=== PATIENT | male | born 1945 | race Caucasian/White ===

== ENCOUNTER 2017-01-24 08:34 | Emergency (ER) | payer MEDICARE, MEDICAID ==
[2017-01-24 08:55] VITALS: BP 95/70
[2017-01-24] MEDS ORDERED: Bacitracin Oint 1 GM U/D Packet TOP ONE (09:17)
--- NOTE | 2017-01-24 09:23 | EDM.PDOC ---
ED HPI GENERAL MEDICAL PROBLEM - General Chief Complaint: Skin Complaint Stated Complaint: INJURY ON LT LOWER LEG Time Seen by Provider: 01/24/17 09:10 Source of Information: Reports: Patient History Limitations: Reports: No Limitations - History of Present Illness INITIAL COMMENTS - FREE TEXT/NARRATIVE: 71-year-old male [place] and sustained a superficial abrasion and laceration to the lateral aspect of his left lower leg. He is leaving for the winter in 2 days and feels like it may be getting infected and wanted it covered for the trip. No fevers or chills. Onset: Other (Injury occurred 5 days ago) Location: Reports: Lower Extremity, Left Severity: Mild Associated Symptoms: Denies: Fever/Chills - Related Data Allergies Allergy/AdvReac Type Severity Reaction Status Date / Time Penicillins Allergy Anaphylactic Verified 01/24/17 08:59 Shock Home Meds: Home Meds Fenofibrate [Fenoglide] 120 mg PO DAILY 11/28/13 [History] Lisinopril [Lisinopril] 5 mg PO DAILY 11/28/13 [History] Simvastatin [Simvastatin] 80 mg PO DAILY 11/28/13 [History] ALPRAZolam [Alprazolam] 0.5 mg PO TID PRN 01/24/17 [History] Aspirin [Adult Low Dose Aspirin EC] 81 mg PO DAILY 01/24/17 [History] Cyclobenzaprine [Flexeril] 10 mg PO ASDIRECTED PRN 01/24/17 [History] Past Medical History HEENT History: Reports: Impaired Vision Cardiovascular History: Reports: High Cholesterol, Hypertension Neurological History: Reports: Other (See Below) Other Neuro History: tremors Oncologic (Cancer) History: Reports: Other (See Below) Other Oncologic History: 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 - Past Surgical History Cardiovascular Surgical History: Reports: Cardiac Ablation Social & Family History - Tobacco Use Smoking Status *Q: Current Every Day Smoker Years of Tobacco use: 55 Packs/Tins Daily: 1.5 - Alcohol Use Days Per Week of Alcohol Use: 2 Number of Drinks Per Day: 2 Total Drinks Per Week: 4 - Recreational Drug Use Recreational Drug Use: Yes Recreational Drug Type: Reports: Marijuana/Hashish Recreational Drug Use Frequency: Monthly ED ROS GENERAL - Review of Systems Review Of Systems: See Below Constitutional: Denies: Fever, Chills, Malaise Respiratory: Denies: Shortness of Breath Cardiovascular: Denies: Chest Pain GI/Abdominal: Denies: Nausea, Vomiting Neurological: Reports: No Symptoms ED EXAM, SKIN/RASH Exam: See Below Exam Limited By: No Limitations General Appearance: Alert, No Apparent Distress Respiratory/Chest: No Respiratory Distress, Lungs Clear Extremities: Other (Exam is otherwise limited to the lower extremities. The patient has a superficial abrasion on the lateral aspect of the left lower leg with some serous weeping and surrounding erythema) Course - Vital Signs Last Recorded V/S: Last Vital Signs Temp 96.3 F 01/24/17 09:06 Pulse 89 01/24/17 09:06 Resp 16 01/24/17 09:06 BP 95/70 01/24/17 09:06 Pulse Ox 94 L 01/24/17 09:06 - Orders/Labs/Meds Meds: Medications Discontinued Medications Generic Name Dose Route Start Last Admin Trade Name Freq PRN Reason Stop Dose Admin Bacitracin 1 dose 01/24/17 09:17 01/24/17 09:30 Bacitracin Oint 1 Gm TOP 01/24/17 09:18 1 dose ONETIME ONE Administration - Re-Assessments/Exams Free Text/Narrative Re-Assessment/Exam: 01/24/17 09:20 Topical bacitracin was placed over the wound with a nonstick dressing and an Migel wrap. He was started on clindamycin and can have his wound rechecked when he gets to [place] later this week. Departure - Departure Time of Disposition: 09:37 Disposition: Home, Self-Care 01 Condition: Good Clinical Impression: Abrasion, leg with infection Qualifiers: Encounter type: initial encounter Laterality: left Qualified Code(s): S80.812A - Abrasion, left lower leg, initial encounter - Discharge Information Instructions: Cellulitis, Adult Referrals: Bruno Casas MD [Primary Care Provider] - Forms: ED Department Discharge Care Plan Goals: Take antibiotic as prescribed and keep wound clean and moist while healing. Recheck later this week if not improving satisfactorily.
== END 2017-01-24 09:37 | disposition home or self-care (01) ==
LOC: JP.ED 08:34
DX: S80.812A Abrasion, left lower leg, initial encounter (principal); L08.9 Local infection of the skin and subcutaneous tissue, unspecified; I10 Essential (primary) hypertension; E78.00 Pure hypercholesterolemia, unspecified; F17.210 Nicotine dependence, cigarettes, uncomplicated; Z88.0 Allergy status to penicillin; Z79.82 Long term (current) use of aspirin; Z85.828 Personal history of other malignant neoplasm of skin; Z79.899 Other long term (current) drug therapy; W18.40XA Slipping, tripping and stumbling without falling, unspecified, initial encounter
CPT/HCPCS: 99283

== ENCOUNTER 2021-08-31 20:13 | Observation (INO) | payer MEDICARE, MEDICAID ==
[2021-08-31] MEDS ORDERED: HYDROmorphone 0.5 MG/0.5 ML Syringe IVPUSH PRN ×2 (20:16→23:43)
[2021-08-31] MEDS ORDERED: Sodium Chloride 0.9% 10 ML Syringe FLUSH PRN ×2 (20:16→23:37)
[2021-08-31 22:07] LABS: CORONAVIRUS COVID-19 NAA NEGATIVE (NEGATIVE)
[2021-08-31] MEDS ORDERED: ALPRAZolam 0.5 MG Tab PO PRN (23:54)
[2021-08-31] MEDS ORDERED: Non-Formulary Medication 1 Each (Cyclobenzaprine [Flexeril] 10 MG Tablet) PO PRN (23:54)
[2021-09-01] MEDS: Acetaminophen/oxyCODONE 325-5 MG Tab PO PRN ×2 (00:40→08:50)
[2021-09-01] MEDS: Fenofibrate,Micronized 67 MG Cap PO SCH (08:39)
[2021-09-01] MEDS: atorvaSTATin 20 MG Tab PO SCH (08:40)
[2021-09-01] MEDS: Enoxaparin 40 MG/0.4 ML Syringe SUBCUT SCH (08:42)
[2021-09-01] MEDS: Lisinopril 5 MG Tab PO SCH (08:43)
[2021-09-01] MEDS ORDERED: Enoxaparin 30 MG/0.3 ML Syringe SUBCUT SCH (09:00)
[2021-09-01] MEDS ORDERED: FENOFIBRATE 120 MG PO SCH (09:00)
[2021-09-01] MEDS ORDERED: Acetaminophen 325 MG Tab PO PRN (12:35)
[2021-09-01] MEDS: Ketorolac 30 MG/ML SDV IVPUSH PRN ×2 (13:33→20:34)
[2021-09-01] MEDS: oxyCODONE 5 MG Tab PO PRN (16:57)
[2021-09-02] MEDS: Cyclobenzaprine 10 MG Tab PO PRN ×3 (03:33→17:19)
[2021-09-02] MEDS: oxyCODONE 5 MG Tab PO PRN ×3 (07:52→21:54)
[2021-09-02] MEDS: Magnesium Hydroxide 400 MG/5 ML Susp 30 ML Cup PO PRN ×2 (08:01→17:20)
[2021-09-02] MEDS: Enoxaparin 40 MG/0.4 ML Syringe SUBCUT SCH (09:43)
[2021-09-02] MEDS: atorvaSTATin 20 MG Tab PO SCH (09:44)
[2021-09-02] MEDS: Lisinopril 5 MG Tab PO SCH (09:44)
[2021-09-02] MEDS: Fenofibrate,Micronized 67 MG Cap PO SCH (09:44)
[2021-09-03] MEDS: oxyCODONE 5 MG Tab PO PRN (08:13)
[2021-09-03] MEDS: Cyclobenzaprine 10 MG Tab PO PRN (08:14)
[2021-09-03] MEDS: atorvaSTATin 20 MG Tab PO SCH (08:15)
[2021-09-03] MEDS: Lisinopril 5 MG Tab PO SCH (08:16)
[2021-09-03] MEDS: Fenofibrate,Micronized 67 MG Cap PO SCH (08:16)
[2021-09-03] MEDS: Enoxaparin 40 MG/0.4 ML Syringe SUBCUT SCH (08:17)
[2021-09-03 11:11] VITALS: BP 119/44; PULSE 74
== END 2021-09-03 13:20 | disposition home health service (06) ==
LOC: JP.ED 20:13 → JP.ICU 23:55
PROVIDERS: ADMIT Family Medicine; ATTEND Internal Medicine
DX: M25.552 Pain in left hip (principal); M54.16 Radiculopathy, lumbar region; R74.01 Elevation of levels of liver transaminase levels; H54.7 Unspecified visual loss; E78.00 Pure hypercholesterolemia, unspecified; F17.210 Nicotine dependence, cigarettes, uncomplicated; I65.29 Occlusion and stenosis of unspecified carotid artery; I73.9 Peripheral vascular disease, unspecified; J44.9 Chronic obstructive pulmonary disease, unspecified; I10 Essential (primary) hypertension; Z20.822 Contact with and (suspected) exposure to COVID-19; Z88.0 Allergy status to penicillin; Z79.899 Other long term (current) drug therapy; Z95.820 Peripheral vascular angioplasty status with implants and grafts; Z98.890 Other specified postprocedural states; W19.XXXA Unspecified fall, initial encounter
CPT/HCPCS: 0241U; 36415; 71250; 73502-26-LT; 73502-LT; 74176; 80053; 80307; 85025; 85610; 85730; 86140; 96372; 96374; 96375; 96376; 97110-GP; 97161-GP; 97530-GP; 99284; 99285-25; A9270-GY; G0378; J1170; J1650; J1885; J3490; J7509

== ENCOUNTER 2022-08-01 03:37 | Emergency (ER) | payer MEDICARE, MEDICAID ==
[2022-08-01 05:09] VITALS: BP 96/68; PULSE 103
[2022-08-01 05:38] LABS: CORONAVIRUS COVID-19 NAA NEGATIVE (NEGATIVE)
[2022-08-01 05:39] LABS: ESTIMATED GFR 87 mL/min (>60)
== END 2022-08-01 06:05 | disposition home or self-care (01) ==
LOC: JP.ED 03:37
DX: E86.0 Dehydration (principal); J42 Unspecified chronic bronchitis; J20.9 Acute bronchitis, unspecified; I48.91 Unspecified atrial fibrillation; I44.7 Left bundle-branch block, unspecified; E78.00 Pure hypercholesterolemia, unspecified; I10 Essential (primary) hypertension; Z72.0 Tobacco use; Z88.0 Allergy status to penicillin; Z79.899 Other long term (current) drug therapy; Z20.822 Contact with and (suspected) exposure to COVID-19
CPT/HCPCS: 0241U; 36415; 80053; 85025; 87081; 87880; 93005; 99283

== ENCOUNTER 2022-12-17 11:06 | Inpatient (IN) | payer MEDICARE, MEDICAID ==
[2022-12-17] MEDS ORDERED: HYDROmorphone 0.5 MG/0.5 ML Syringe IVPUSH ONE (12:00)
[2022-12-17] MEDS ORDERED: Sodium Chloride 0.9% 1,000 ML IV SCH (12:00)
[2022-12-17] MEDS ORDERED: Ondansetron 4 MG/2 ML SDV IVPUSH ONE (12:00)
[2022-12-17 12:21] LABS: HEMATOCRIT 40.5 % (38.4-49.7); HEMOGLOBIN 13.6 g/dL (12.9-16.9); MEAN CORPUSCULAR HEMOGLOBIN 31.1 pg (31.6-35.5); MEAN CORPUSCULAR HGB CONC 33.6 g/dL (31.6-35.5); MEAN CORPUSCULAR VOLUME 92.7 fL (81.4-99.0); RED BLOOD CELL COUNT 4.37 M/uL (4.14-5.76); WHITE BLOOD CELL COUNT,WBC 7.3 K/uL (3.2-11.0)
[2022-12-17 12:38] LABS: INR 1.1; PROTHROMBIN TIME 11.2 sec (9.2-10.6)
[2022-12-17 12:42] LABS: A/G RATIO 0.9 (1.2-2.2); ALANINE AMINOTRANSFERASE,ALT 35 U/L (12-78); ALBUMIN 3.2 g/dL (3.4-5.0); ALKALINE PHOSPHATASE 118 U/L (46-116); ASPARTATE AMNIOTRANSFERASE,AST 32 U/L (15-37); BILIRUBIN TOTAL 0.6 mg/dL (0.2-1.0); BLOOD UREA NITROGEN,BUN 13 mg/dL (7-18); CALCIUM 9.2 mg/dL (8.5-10.1); CARBON DIOXIDE,CO2 29 mmol/L (21-32); CHLORIDE,CL 104 mmol/L (100-108); CREATININE 0.9 mg/dL (0.8-1.3); EST CRCL DRUG DOSING (CG) 66.55 mL/min; ESTIMATED GFR 87 mL/min (>60); GLUCOSE RANDOM 160 mg/dL (74-106); POTASSIUM,K 3.9 mmol/L (3.6-5.2); PROTEIN TOTAL,TP 6.9 g/dL (6.4-8.2); SODIUM,NA 140 mmol/L (140-148)
[2022-12-17 14:19] LABS: APPEARANCE,URINE CLEAR (CLEAR); BILIRUBIN,URINE NEGATIVE (NEGATIVE); COLOR,URINE YELLOW (YELLOW); GLUCOSE,URINE 100 mg/dL (NEGATIVE); KETONES,URINE NEGATIVE (NEGATIVE); LEUKOCYTE ESTERASE,URINE NEGATIVE (NEGATIVE); NITRITE,URINE NEGATIVE (NEGATIVE); OCCULT BLOOD,URINE NEGATIVE (NEGATIVE); PROTEIN,URINE NEGATIVE (NEGATIVE)
[2022-12-17 14:26] LABS: AMORPHOUS SEDIMENT,URINE NOT SEEN; BACTERIA,URINE RARE; EPITHELIAL CELLS,URINE RARE; MUCUS,URINE FEW; RBC,URINE 0-5 (0-5); WBC,URINE 0-5 (0-5)
[2022-12-17] MEDS ORDERED: Iopamidol 612 MG/ML 500 ML Multipack Bottle IV ONE (14:37)
[2022-12-17] MEDS ORDERED: Sodium Chloride 0.9% 10 ML Syringe FLUSH ONE (14:37)
[2022-12-17] MEDS ORDERED: Sodium Chloride 0.9% 50 ML IV SCH (14:45)
[2022-12-17] MEDS ORDERED: Sodium Chloride 0.9% 1,000 ML IV STA (15:35)
[2022-12-17] MEDS ORDERED: Ertapenem 1 GM in Sodium Chloride 0.9% 100 ML IV ONE (16:50)
[2022-12-17] MEDS ORDERED: HYDROmorphone 1 MG/ML Syringe IVPUSH ONE (16:56)
[2022-12-17] MEDS ORDERED: Sodium Chloride 0.9% 10 ML Syringe FLUSH PRN (18:17)
[2022-12-17] MEDS ORDERED: Cyclobenzaprine 10 MG Tab PO PRN (18:17)
[2022-12-17] MEDS ORDERED: Acetaminophen 325 MG Tab PO PRN (18:17)
[2022-12-17] MEDS ORDERED: Ondansetron 4 MG/2 ML SDV IV PRN (18:17)
[2022-12-17] MEDS ORDERED: Naloxone 0.4 MG/ML SDV IVPUSH PRN (18:17)
[2022-12-17] MEDS ORDERED: Polyethylene Glycol 3350 Powder 17 GM Packet PO PRN (18:17)
[2022-12-17] MEDS ORDERED: ALPRAZolam 0.5 MG Tab PO PRN (18:35)
[2022-12-17] MEDS: Nicotine 21 MG/24 Hr Patch TRDERM SCH (19:08)
[2022-12-17] MEDS: Sodium Chloride 0.9% 1,000 ML IV SCH (19:09)
[2022-12-17] MEDS: atorvaSTATin 20 MG Tab PO SCH (21:12)
[2022-12-17] MEDS: Meropenem 1 GM in Sodium Chloride 0.9% 100 ML IV SCH (21:12)
[2022-12-18] MEDS: HYDROmorphone 0.5 MG/0.5 ML Syringe IVPUSH PRN ×2 (00:22→05:41)
[2022-12-18 04:42] LABS: BASOPHILS ABSOLUTE AUTO 0.06 K/uL (0.00-0.10); BASOPHILS PERCENT AUTO 0.9 % (0.1-1.3); EOSINOPHILS PERCENT AUTO 7.2 % (0.0-5.4); HEMOGLOBIN 12.4 g/dL (12.9-16.9); IMMATURE GRAN PERCENT AUTO 0.3 % (0.0-0.7); LYMPHOCYTES ABSOLUTE AUTO 1.52 K/uL (0.8-3.3); LYMPHOCYTES PERCENT AUTO 21.7 % (11.4-47.7); MEAN CORPUSCULAR HEMOGLOBIN 30.6 pg (31.6-35.5); MEAN CORPUSCULAR HGB CONC 32.6 g/dL (31.6-35.5); MEAN CORPUSCULAR VOLUME 93.8 fL (81.4-99.0); MONOCYTES ABSOLUTE AUTO 0.62 K/uL (0.20-0.90); MONOCYTES PERCENT AUTO 8.9 % (3.3-12.6); NEUTROPHILS ABSOLUTE AUTO 4.27 K/uL (1.0-7.6); PLATELET COUNT,PLT 158 K/uL (130-375); RED BLOOD CELL COUNT 4.05 M/uL (4.14-5.76)
[2022-12-18 04:43] LABS: IMMATURE GRAN ABSOLUTE AUTO 0.02 K/uL (0.00-0.23)
[2022-12-18 04:53] LABS: ANION GAP 5.7 mmol/L (5.0-14.0); CALCIUM 8.2 mg/dL (8.5-10.1); CREATININE 0.8 mg/dL (0.8-1.3); EST CRCL DRUG DOSING (CG) 74.87 mL/min; POTASSIUM,K 3.7 mmol/L (3.6-5.2)
[2022-12-18] MEDS: Sodium Chloride 0.9% 1,000 ML IV SCH (05:42)
[2022-12-18] MEDS: Meropenem 1 GM in Sodium Chloride 0.9% 100 ML IV SCH (05:43)
[2022-12-18] MEDS ORDERED: Bupivacaine 0.5%/EPINEPHrine 1:200,000 50 ML MDV ONE (06:39)
[2022-12-18] MEDS ORDERED: Lidocaine 1% 50 ML MDV ONE (06:39)
[2022-12-18] MEDS ORDERED: Rocuronium 50 MG/5 ML Vial ONE (07:24)
[2022-12-18] MEDS ORDERED: Dexamethasone 4 MG/ML SDV ONE (07:24)
[2022-12-18] MEDS ORDERED: Propofol 200 MG/20 ML SDV ONE (07:24)
[2022-12-18] MEDS ORDERED: Ondansetron 4 MG/2 ML SDV ONE (07:24)
[2022-12-18] MEDS ORDERED: fentaNYL 250 MCG/5 ML SDV ONE (07:24)
[2022-12-18] MEDS ORDERED: Glycopyrrolate 0.2 MG/ML 5 ML MDV ONE (07:24)
[2022-12-18] MEDS ORDERED: Neostigmine Methylsulfate 1 MG/ML 5 ML Syringe ONE (07:24)
[2022-12-18] MEDS ORDERED: Succinylcholine 200 MG/10 ML MDV ONE (07:24)
[2022-12-18] MEDS ORDERED: Ketamine 20 MG in Sodium Chloride 0.9% 19.8 ML IV SCH (07:30)
[2022-12-18] MEDS ORDERED: Ropivacaine 40 ML, dexAMETHasone 8 MG, EPINEPHrine 0.4 MG, Sodium Chloride 0.9% 37.6 ML NERVRT SCH ×4 (07:30)
[2022-12-18] MEDS ORDERED: Ketamine 500 MG/5 ML MDV IV SCH (07:30)
[2022-12-18] MEDS ORDERED: Lactated Ringers 1,000 ML ONE (08:10)
[2022-12-18] MEDS ORDERED: Sugammadex Sodium 200 MG/2 ML VIAL ONE (08:55)
[2022-12-18] MEDS: Lisinopril 5 MG Tab PO SCH (09:59)
[2022-12-18] MEDS: Nicotine 21 MG/24 Hr Patch TRDERM SCH (10:06)
[2022-12-18] MEDS: Dextrose 5%-Lactated Ringers 1,000 ML IV SCH ×2 (12:50→21:37)
[2022-12-18] MEDS: Meropenem 500 MG in Sodium Chloride 0.9% 50 ML IV SCH ×3 (12:52→23:18)
[2022-12-18] MEDS: Acetaminophen 325 MG Tab PO SCH ×2 (13:06→20:10)
[2022-12-18] MEDS: oxyCODONE 5 MG Tab PO PRN (13:06)
[2022-12-18] MEDS: atorvaSTATin 20 MG Tab PO SCH (20:10)
[2022-12-19] MEDS: Acetaminophen 325 MG Tab PO SCH ×2 (02:40→08:41)
[2022-12-19 04:57] LABS: BASOPHILS PERCENT AUTO 0.1 % (0.1-1.3); EOSINOPHILS PERCENT AUTO 0.1 % (0.0-5.4); HEMATOCRIT 38.2 % (38.4-49.7); HEMOGLOBIN 12.7 g/dL (12.9-16.9); IMMATURE GRAN ABSOLUTE AUTO 0.04 K/uL (0.00-0.23); IMMATURE GRAN PERCENT AUTO 0.4 % (0.0-0.7); LYMPHOCYTES ABSOLUTE AUTO 1.11 K/uL (0.8-3.3); LYMPHOCYTES PERCENT AUTO 10.9 % (11.4-47.7); MEAN CORPUSCULAR HEMOGLOBIN 30.7 pg (31.6-35.5); MEAN CORPUSCULAR HGB CONC 33.2 g/dL (31.6-35.5); MEAN CORPUSCULAR VOLUME 92.3 fL (81.4-99.0); MONOCYTES ABSOLUTE AUTO 0.79 K/uL (0.20-0.90); MONOCYTES PERCENT AUTO 7.7 % (3.3-12.6); NEUTROPHILS ABSOLUTE AUTO 8.27 K/uL (1.0-7.6); NEUTROPHILS PERCENT AUTO 80.8 % (40.0-78.1); PLATELET COUNT,PLT 154 K/uL (130-375); RED BLOOD CELL COUNT 4.14 M/uL (4.14-5.76); WHITE BLOOD CELL COUNT,WBC 10.2 K/uL (3.2-11.0)
[2022-12-19] MEDS: Meropenem 500 MG in Sodium Chloride 0.9% 50 ML IV SCH ×2 (05:13→11:26)
[2022-12-19 05:15] LABS: BASOPHILS ABSOLUTE AUTO 0.01 K/uL (0.00-0.10); EOSINOPHILS ABSOLUTE AUTO 0.01 K/uL (0.00-0.40)
[2022-12-19 05:44] LABS: BILIRUBIN TOTAL 0.3 mg/dL (0.2-1.0)
[2022-12-19] MEDS: Lisinopril 5 MG Tab PO SCH (08:41)
[2022-12-19] MEDS: Nicotine 21 MG/24 Hr Patch TRDERM SCH (08:42)
[2022-12-19] MEDS: oxyCODONE 5 MG Tab PO PRN (08:45)
[2022-12-19 11:58] VITALS: BP 131/48; PULSE 85
== END 2022-12-19 15:08 | disposition home or self-care (01) | DRG 418 ==
LOC: JP.ED 11:06 → JP.MS 17:21
PROVIDERS: ADMIT Hospitalist; ATTEND Hospitalist
PROC: 0FT44ZZ Resection of Gallbladder, Percutaneous Endoscopic Approach (ICD-10-PCS; principal; 2022-12-18)
PROC: 0FB24ZX Excision of Left Lobe Liver, Percutaneous Endoscopic Approach, Diagnostic (ICD-10-PCS; 2022-12-18)
PROC: 0WQF4ZZ Repair Abdominal Wall, Percutaneous Endoscopic Approach (ICD-10-PCS; 2022-12-18)
DX: K81.0 Acute cholecystitis (principal); K42.0 Umbilical hernia with obstruction, without gangrene; K76.6 Portal hypertension; E86.0 Dehydration; J44.9 Chronic obstructive pulmonary disease, unspecified; I10 Essential (primary) hypertension; E78.00 Pure hypercholesterolemia, unspecified; F17.210 Nicotine dependence, cigarettes, uncomplicated; I73.9 Peripheral vascular disease, unspecified; K74.69 Other cirrhosis of liver; Z90.49 Acquired absence of other specified parts of digestive tract; Z88.0 Allergy status to penicillin; Z79.899 Other long term (current) drug therapy; Z87.81 Personal history of (healed) traumatic fracture; Z85.828 Personal history of other malignant neoplasm of skin; Z90.89 Acquired absence of other organs; Z95.820 Peripheral vascular angioplasty status with implants and grafts; R06.02 Shortness of breath
CPT/HCPCS: 36415; 74177 ×2; 76705 ×2; 80053; 80307; 81001; 83605; 83690; 83735; 84145; 85027; 85610; 96361; 96365; 96375; 96376; 99284; 99285; J1170 ×2; J1335; J2405; J3490 ×3; J7030 ×2; Q9967; 71046; 80048; 82247; 84075; 85025; 88304; 88307; 88313; 93005; 93010; 99222; 99232; A9270-GY; J0131; J0171; J0330; J1100; J2001; J2185; J2704; J2710; J2795; J3010; J7120; J7121; U0002

== ENCOUNTER 2023-01-16 16:47 | Emergency (ER) | payer MEDICAID, MEDICARE ==
[2023-01-16] MEDS ORDERED: Sodium Chloride 0.9% 1,000 ML IV SCH (17:00)
[2023-01-16 17:06] LABS: BASOPHILS ABSOLUTE AUTO 0.07 K/uL (0.00-0.10); BASOPHILS PERCENT AUTO 0.6 % (0.1-1.3); EOSINOPHILS ABSOLUTE AUTO 0.08 K/uL (0.00-0.40); EOSINOPHILS PERCENT AUTO 0.7 % (0.0-5.4); HEMATOCRIT 36.6 % (38.4-49.7); HEMOGLOBIN 12.2 g/dL (12.9-16.9); IMMATURE GRAN ABSOLUTE AUTO 0.05 K/uL (0.00-0.23); IMMATURE GRAN PERCENT AUTO 0.4 % (0.0-0.7); LYMPHOCYTES ABSOLUTE AUTO 0.97 K/uL (0.8-3.3); LYMPHOCYTES PERCENT AUTO 8.4 % (11.4-47.7); MEAN CORPUSCULAR HEMOGLOBIN 30.6 pg (31.6-35.5); MEAN CORPUSCULAR HGB CONC 33.3 g/dL (31.6-35.5); MEAN CORPUSCULAR VOLUME 91.7 fL (81.4-99.0); MONOCYTES PERCENT AUTO 7.8 % (3.3-12.6); NEUTROPHILS ABSOLUTE AUTO 9.42 K/uL (1.0-7.6); NEUTROPHILS PERCENT AUTO 82.1 % (40.0-78.1); PLATELET COUNT,PLT 177 K/uL (130-375); RED BLOOD CELL COUNT 3.99 M/uL (4.14-5.76); WHITE BLOOD CELL COUNT,WBC 11.5 K/uL (3.2-11.0)
[2023-01-16 17:27] LABS: A/G RATIO 0.9 (1.2-2.2); ALANINE AMINOTRANSFERASE,ALT 42 U/L (12-78); ALBUMIN 2.9 g/dL (3.4-5.0); ALKALINE PHOSPHATASE 134 U/L (46-116); ASPARTATE AMNIOTRANSFERASE,AST 38 U/L (15-37); BILIRUBIN TOTAL 0.9 mg/dL (0.2-1.0); BLOOD UREA NITROGEN,BUN 17 mg/dL (7-18); CALCIUM 8.2 mg/dL (8.5-10.1); CARBON DIOXIDE,CO2 21 mmol/L (21-32); CHLORIDE,CL 103 mmol/L (100-108); CREATININE 1.2 mg/dL (0.8-1.3); EST CRCL DRUG DOSING (CG) 51.54 mL/min; ESTIMATED GFR 62 mL/min (>60); GLUCOSE RANDOM 163 mg/dL (74-106); PROTEIN TOTAL,TP 6.2 g/dL (6.4-8.2); SODIUM,NA 138 mmol/L (140-148)
[2023-01-16] MEDS ORDERED: Sodium Chloride 0.9% 1,000 ML IV ONE (18:40)
[2023-01-16 19:23] VITALS: BP 143/63; PULSE 98
== END 2023-01-17 09:44 | disposition home or self-care (01) ==
LOC: JP.ED 16:47
DX: T67.5XXA Heat exhaustion, unspecified, initial encounter (principal); E86.0 Dehydration; I73.9 Peripheral vascular disease, unspecified; I48.91 Unspecified atrial fibrillation; E78.00 Pure hypercholesterolemia, unspecified; I10 Essential (primary) hypertension; Z98.62 Peripheral vascular angioplasty status; Z88.0 Allergy status to penicillin; Z79.84 Long term (current) use of oral hypoglycemic drugs; Z79.899 Other long term (current) drug therapy
CPT/HCPCS: 36415; 80053; 82550; 83735; 85025; 96360; 96361; 99284; J7030

== ENCOUNTER 2023-04-15 18:38 | Emergency (ER) | payer MEDICAID, MEDICARE ==
[2023-04-15 18:42] VITALS: BP 135/52; PULSE 97
[2023-04-15 19:27] LABS: HEMATOCRIT 38.7 % (38.4-49.7); HEMOGLOBIN 12.3 g/dL (12.9-16.9); MEAN CORPUSCULAR HEMOGLOBIN 29.4 pg (31.6-35.5); MEAN CORPUSCULAR HGB CONC 31.8 g/dL (31.6-35.5); MEAN CORPUSCULAR VOLUME 92.4 fL (81.4-99.0); RED BLOOD CELL COUNT 4.19 M/uL (4.14-5.76); WHITE BLOOD CELL COUNT,WBC 6.8 K/uL (3.2-11.0)
[2023-04-15 19:58] LABS: ALANINE AMINOTRANSFERASE,ALT 13 U/L (12-78); ALBUMIN 3.3 g/dL (3.4-5.0); ALKALINE PHOSPHATASE 84 U/L (46-116); ANION GAP 7.9 mmol/L (5.0-14.0); ASPARTATE AMNIOTRANSFERASE,AST 31 U/L (15-37); BILIRUBIN TOTAL 0.4 mg/dL (0.2-1.0); BLOOD UREA NITROGEN,BUN 15 mg/dL (7-18); C-REACTIVE PROTEIN 2.62 mg/dL (0.0-0.3); CARBON DIOXIDE,CO2 29 mmol/L (21-32); CHLORIDE,CL 108 mmol/L (100-108); EST CRCL DRUG DOSING (CG) 58.92 mL/min; ESTIMATED GFR 76 mL/min (>60); GLUCOSE RANDOM 105 mg/dL (74-106); POTASSIUM,K 4.2 mmol/L (3.6-5.2); PROTEIN TOTAL,TP 6.7 g/dL (6.4-8.2); SODIUM,NA 145 mmol/L (140-148); TROPONIN I HIGH SENSITIVITY 8.7 pg/mL (<=60.3)
== END 2023-04-15 21:57 | disposition home or self-care (01) ==
LOC: JP.ED 18:38
DX: S09.90XA Unspecified injury of head, initial encounter (principal); I10 Essential (primary) hypertension; E78.00 Pure hypercholesterolemia, unspecified; Z79.84 Long term (current) use of oral hypoglycemic drugs; Z88.0 Allergy status to penicillin; W01.0XXA Fall on same level from slipping, tripping and stumbling without subsequent striking against object, initial encounter; Y92.010 Kitchen of single-family (private) house as the place of occurrence of the external cause; Z95.5 Presence of coronary angioplasty implant and graft; Z90.49 Acquired absence of other specified parts of digestive tract; Z79.899 Other long term (current) drug therapy
CPT/HCPCS: 36415; 70450; 72125; 76377; 80053; 82550; 84484; 85027; 86140; 93005; 99284

== ENCOUNTER 2023-11-09 07:05 | Inpatient (IN) | payer MEDICARE ==
[2023-11-09] MEDS: Albuterol/Ipratropium 3.0-0.5 MG/3 ML Neb Soln NEB ONE ×2 (07:18→10:34)
[2023-11-09] MEDS: Sodium Chloride 0.9% 1,000 ML IV ONE (07:24)
[2023-11-09] MEDS: Morphine 2 MG/ML SYRINGE IVPUSH ONE ×2 (07:25→10:43)
[2023-11-09 07:38] LABS: HEMATOCRIT 24.4 % (38.4-49.7); HEMOGLOBIN 7.3 g/dL (12.9-16.9); MEAN CORPUSCULAR HEMOGLOBIN 23.7 pg (31.6-35.5); MEAN CORPUSCULAR HGB CONC 29.9 g/dL (31.6-35.5); MEAN CORPUSCULAR VOLUME 79.2 fL (81.4-99.0); PLATELET COUNT,PLT 280 K/uL (130-375); RED BLOOD CELL COUNT 3.08 M/uL (4.14-5.76); WHITE BLOOD CELL COUNT,WBC 14.3 K/uL (3.2-11.0)
[2023-11-09 07:39] LABS: BASE EXCESS ARTERIAL -0.6 mm/L; BICARBONATE,ARTERIAL 22.9 mmol/L (22.0-26.0); CARBOXYHEMOGLOBIN 3.5 % (0.0-1.6); METHEMOGLOBIN 0.5 %; O2 SATURATION ARTERIAL > 99.3 % (95.0-98.0); OXYHEMOGLOBIN 95.4 %; PCO2 ARTERIAL 34.6 mmHg (35.0-42.0); TOTAL HEMOGLOBIN 7.2 g/dL (13.5-18.0)
[2023-11-09] MEDS: methylPREDNISolone Sodium Succinate 125 MG/2 ML SDV IVPUSH ONE (07:57)
[2023-11-09 08:02] LABS: A/G RATIO 0.8 (1.2-2.2); ALANINE AMINOTRANSFERASE,ALT 25 U/L (12-78); ALKALINE PHOSPHATASE 92 U/L (46-116); ANION GAP 11.4 mmol/L (5.0-14.0); ASPARTATE AMNIOTRANSFERASE,AST 30 U/L (15-37); BILIRUBIN TOTAL 0.4 mg/dL (0.2-1.0); BLOOD UREA NITROGEN,BUN 21 mg/dL (7-18); CALCIUM 8.7 mg/dL (8.5-10.1); CARBON DIOXIDE,CO2 26 mmol/L (21-32); CHLORIDE,CL 106 mmol/L (100-108); EST CRCL DRUG DOSING (CG) 60.83 mL/min; ESTIMATED GFR 76 mL/min (>60); GLUCOSE RANDOM 200 mg/dL (74-106); POTASSIUM,K 4.4 mmol/L (3.6-5.2); PROTEIN TOTAL,TP 6.7 g/dL (6.4-8.2); SODIUM,NA 139 mmol/L (140-148); TROPONIN I HIGH SENSITIVITY 29.5 pg/mL (<=60.3)
[2023-11-09 08:11] LABS: ATYPICAL LYMPHOCYTES FEW; EOSINOPHILS ABSOLUTE MAN 0.86 K/uL (0.00-0.40); EOSINOPHILS PERCENT MAN 6 % (2-4); LYMPHOCYTES ABSOLUTE MAN 5.01 K/uL (0.8-3.3); LYMPHOCYTES PERCENT MAN 35 % (24-44); MONOCYTES ABSOLUTE MAN 0.86 K/uL (0.20-0.90); MONOCYTES PERCENT MAN 6 % (2-6); NEUTROPHILS ABSOLUTE MAN 7.58 K/uL (1.0-7.6); SEG NEUTROPHILS PERCENT MAN 53 % (36-66)
[2023-11-09] MEDS: Levofloxacin/Dextrose 5%-Water 500 MG in Premix Bag 1 BAG IV ONE (08:13)
[2023-11-09 08:41] LABS: LACTIC ACID 1.3 mmol/L (0.4-2.0)
[2023-11-09] MEDS: Sodium Chloride 0.9% 1,000 ML IV SCH (09:42)
[2023-11-09] MEDS: Sodium Chloride 0.9% 10 ML Syringe FLUSH PRN (09:43)
[2023-11-09] MEDS: Norepinephrine Bit/D5W Premix 4 MG in Premix Bag 1 BAG IV SCH (10:07)
[2023-11-09] MEDS: Albuterol/Ipratropium 3.0-0.5 MG/3 ML Neb Soln ONE (10:38)
[2023-11-09 10:54] LABS: CORONAVIRUS COVID-19 NAA NEGATIVE (NEGATIVE); INFLUENZA A NAA NEGATIVE (NEGATIVE); INFLUENZA B NAA NEGATIVE (NEGATIVE); RESPIRATORY SYNCYTIAL VIR NAA NEGATIVE (NEGATIVE)
[2023-11-09] MEDS: Furosemide 40 MG/4 ML VIAL IVPUSH ONE (11:04)
[2023-11-09] MEDS: Furosemide 40 MG/4 ML VIAL ONE (11:14)
[2023-11-09 11:45] LABS: BASE EXCESS ARTERIAL -11.8 mm/L; BICARBONATE,ARTERIAL 19.9 mmol/L (22.0-26.0); CARBOXYHEMOGLOBIN 1.6 % (0.0-1.6); O2 SATURATION ARTERIAL 80.6 % (95.0-98.0); OXYHEMOGLOBIN 78.5 %; PO2 ARTERIAL 74.3 mmHg (75.0-100.0); TOTAL HEMOGLOBIN 8.3 g/dL (13.5-18.0)
[2023-11-09] MEDS: LORazepam 2 MG/ML SDV IVPUSH ONE (11:46)
[2023-11-09 11:49] LABS: PCO2 ARTERIAL 87.9 mmHg (35.0-42.0)
[2023-11-09] MEDS: Sodium Bicarbonate 150 MEQ in Dextrose 5% in Water 1,000 ML IV ONE (12:26)
[2023-11-09] MEDS ORDERED: Magnesium Hydroxide 400 MG/5 ML Susp 30 ML Cup PO PRN (13:42)
[2023-11-09] MEDS ORDERED: Albuterol 0.083% 2.5 MG/3 ML Neb Soln NEB PRN (13:42)
[2023-11-09] MEDS ORDERED: Acetaminophen 650 MG Supp RECTAL PRN (13:42)
[2023-11-09] MEDS ORDERED: Ondansetron 4 MG/2 ML SDV IV PRN (13:42)
[2023-11-09] MEDS ORDERED: Morphine 2 MG/ML SYRINGE IVPUSH PRN (13:42)
[2023-11-09] MEDS ORDERED: LORazepam 2 MG/ML SDV IVPUSH PRN (13:42)
[2023-11-09] MEDS ORDERED: Sennosides/Docusate Sodium 50-8.6 MG Tab PO PRN (13:42)
[2023-11-09] MEDS ORDERED: Ondansetron 4 MG Tab.DIS PO PRN (13:42)
[2023-11-09] MEDS ORDERED: Enoxaparin 40 MG/0.4 ML Syringe SUBCUT SCH (14:00)
[2023-11-09] MEDS ORDERED: Magnesium Sulfate/Water 2 GM in Premix Bag 1 BAG IV ONE (14:00)
[2023-11-09 14:04] LABS: BICARBONATE,ARTERIAL 20.3 mmol/L (22.0-26.0); METHEMOGLOBIN 1.4 %; O2 SATURATION ARTERIAL 70.8 % (95.0-98.0); OXYHEMOGLOBIN 68.4 %; PO2 ARTERIAL 57.9 mmHg (75.0-100.0); TOTAL HEMOGLOBIN 8.1 g/dL (13.5-18.0)
[2023-11-09 14:07] LABS: PCO2 ARTERIAL 77.7 mmHg (35.0-42.0)
[2023-11-09] MEDS ORDERED: Albuterol/Ipratropium 3.0-0.5 MG/3 ML Neb Soln NEB SCH (15:00)
[2023-11-09 15:33] VITALS: BP 0/0; PULSE 0
[2023-11-09] MEDS ORDERED: methylPREDNISolone Sodium Succinate 125 MG/2 ML SDV IVPUSH SCH (16:00)
[2023-11-10] MEDS ORDERED: Levofloxacin/Dextrose 5%-Water 750 MG in Premix Bag 1 BAG IV SCH (06:00)
== END 2023-11-09 14:11 | disposition expired | DRG 871 ==
LOC: JP.ED 07:05 → JP.ICU 11:58
PROVIDERS: ADMIT Internal Medicine; ATTEND Internal Medicine
PROC: 3E03329 Introduction of Other Anti-infective into Peripheral Vein, Percutaneous Approach (ICD-10-PCS; principal; 2023-11-09)
PROC: 3E033XZ Introduction of Vasopressor into Peripheral Vein, Percutaneous Approach (ICD-10-PCS; 2023-11-09)
PROC: 5A09357 Assistance with Respiratory Ventilation, Less than 24 Consecutive Hours, Continuous Positive Airway Pressure (ICD-10-PCS; 2023-11-09)
PROC: 4A133R1 Monitoring of Arterial Saturation, Peripheral, Percutaneous Approach (ICD-10-PCS; 2023-11-09)
DX: A41.9 Sepsis, unspecified organism (principal); I21.A1 Myocardial infarction type 2; J18.9 Pneumonia, unspecified organism; R65.21 Severe sepsis with septic shock; Z79.84 Long term (current) use of oral hypoglycemic drugs; J80 Acute respiratory distress syndrome; I42.9 Cardiomyopathy, unspecified; Z87.891 Personal history of nicotine dependence; J44.1 Chronic obstructive pulmonary disease with (acute) exacerbation; J44.0 Chronic obstructive pulmonary disease with (acute) lower respiratory infection; Z66 Do not resuscitate; I48.91 Unspecified atrial fibrillation; I10 Essential (primary) hypertension; E78.00 Pure hypercholesterolemia, unspecified; K21.9 Gastro-esophageal reflux disease without esophagitis; H91.90 Unspecified hearing loss, unspecified ear; F41.9 Anxiety disorder, unspecified; K74.60 Unspecified cirrhosis of liver; I73.9 Peripheral vascular disease, unspecified; H54.7 Unspecified visual loss; F17.210 Nicotine dependence, cigarettes, uncomplicated; Z88.0 Allergy status to penicillin; Z97.3 Presence of spectacles and contact lenses; Z95.5 Presence of coronary angioplasty implant and graft; Z79.02 Long term (current) use of antithrombotics/antiplatelets; Z90.49 Acquired absence of other specified parts of digestive tract; Z90.89 Acquired absence of other organs; Z79.899 Other long term (current) drug therapy; Z98.890 Other specified postprocedural states; Z85.828 Personal history of other malignant neoplasm of skin
CPT/HCPCS: 0241U; 36415; 36600; 71045; 71250; 80053; 82803; 83605; 83880; 84145; 84484; 85018; 85025; 86140; 87040; 93005; 94640; 94660; 99223; 93010; 99285; 99291; J1940; J1956; J2270; J2919; J3490; J7030; J7060; J7620